=== PATIENT | male | born 1965 | race Caucasian/White ===

== ENCOUNTER 2018-11-13 15:47 | Emergency (ER) | payer OTHER ==
[2018-11-13] MEDS ORDERED: ASPIRIN 81 MG TABLET, CHEWABLE PO ONE (16:28)
[2018-11-13] MEDS ORDERED: LIDOCAINE 1% INJ-PF (10 MG/ML) 30 ML SDV NEB ONE (16:29)
[2018-11-13] MEDS ORDERED: IPRATROPIUM/ALBUTEROL 0.5-2.5 MG/3 ML AMPUL NEB ONE (16:29)
--- NOTE | 2018-11-13 16:30 | ER Document Report ---
ED Medical Screen (RME) - General Chief Complaint: Shortness Of Breath Stated Complaint: COUGH/SHORT OF BREATH Time Seen by Provider: 11/13/18 16:28 Primary Care Provider: LÁZARO OSORIO MD [Primary Care Provider] - Follow up as needed TRAVEL OUTSIDE OF THE [place] IN LAST 30 DAYS: No - HPI Notes: 11/13/18 16:29 Patient coming in for week's worth of shortness of breath feeling unwell fevers chills cough has been productive patient now having 2 days of chest heaviness. Past medical history positive for seizure disorder hypertension tremors on Keppra verapamil and propranolol - Related Data Allergies/Adverse Reactions: bees Allergy (Uncoded 11/13/18 15:50) Review of Systems - Review of Systems Respiratory: Cough Physical Exam - Vital signs Vitals: Temp Pulse Resp BP Pulse Ox 98.0 F 74 18 138/90 H 96 11/13/18 15:50 11/13/18 15:50 11/13/18 15:50 11/13/18 15:50 11/13/18 15:50 - Respiratory Respiratory status: No respiratory distress Chest status: Nontender Breath sounds: Wheezing - fine Course - Vital Signs Vital signs: Temp Pulse Resp BP Pulse Ox 98.0 F 74 18 138/90 H 96 11/13/18 15:50 11/13/18 15:50 11/13/18 15:50 11/13/18 15:50 11/13/18 15:50 Doctor's Discharge - Discharge Referrals: LÁZARO OSORIO MD [Primary Care Provider] - Follow up as needed
[2018-11-13 17:19] LABS: INTERNATIONAL RATION (INR) 1.01; PROTHROMBIN TIME 13.8 SEC (11.4-15.4)
--- NOTE | 2018-11-13 17:24 | ER Document Report ---
ED General - General Chief Complaint: Shortness Of Breath Stated Complaint: COUGH/SHORT OF BREATH Time Seen by Provider: 11/13/18 16:28 Primary Care Provider: LÁZARO OSORIO MD [COMMUNITY BASED STAFF] - Follow up as needed TRAVEL OUTSIDE OF THE [place] IN LAST 30 DAYS: No - HPI Notes: Patient is a 52-year-old male with a history of hypertension, migraines, seizures who presents the emergency department complaining of nasal congestion/discharge, semi-productive cough, subjective fever, and body aching over the last week. Patient states that starting yesterday he started having chest tightness and some wheezing which has been constant. Patient states that walking on occasion will make the tightness and breathing worse. He is otherwise able to eat and drink without difficulty. He is urinating normally and having normal bowel movements. No other concern of pain. No significant cardiopulmonary medical history. Denies drug allergies. No smoking history. Denies any headache, fever, neck pain, sore throat, palpitations, syncope, abdominal pain, nausea/vomiting/diarrhea, urinary retention, dysuria, hematuria, back pain, or rash. - Related Data Allergies/Adverse Reactions: bees Allergy (Uncoded 11/13/18 15:50) Past Medical History - Social History Smoking Status: Former Smoker Chew tobacco use (# tins/day): No Frequency of alcohol use: None Drug Abuse: None Family History: Reviewed & Not Pertinent Patient has suicidal ideation: No Patient has homicidal ideation: No - Past Medical History Cardiac Medical History: Reports: Hx Hypertension Neurological Medical History: Reports: Hx Seizures Renal/ Medical History: Denies: Hx Peritoneal Dialysis Review of Systems - Review of Systems -: Yes All other systems reviewed and negative Physical Exam - Vital signs Vitals: Temp Pulse Resp BP Pulse Ox 98.0 F 74 18 138/90 H 96 11/13/18 15:50 11/13/18 15:50 11/13/18 15:50 11/13/18 15:50 11/13/18 15:50 - Notes Notes: PHYSICAL EXAMINATION: GENERAL: Well-appearing, well-nourished and in no acute distress. A&Ox4. Answers questions appropriately. HEAD: Atraumatic, normocephalic. EYES: Pupils equal round and reactive to light, extraocular movements intact, sclera anicteric, conjunctiva are normal. ENT: Nares patent and with clear discharge. oropharynx clear without exudates. No tonsilar hypertrophy or erythema. Moist mucous membranes. NECK: Normal range of motion, supple without lymphadenopathy LUNGS: scant crackle rt lower lobe. No distress or tachypnea. HEART: Regular rate and rhythm without murmurs, rubs, gallops. ABDOMEN: Soft, nontender, nondistended abdomen. No guarding, no rebound. Normal bowel sounds present. No CVA tenderness bilaterally. Musculoskeletal: FROM to passive/active. Strength 5+/5. Ruby neg. No asymmetry to LE's. Extremities: No cyanosis, clubbing, or edema b/l. Peripheral pulses 2+. Capillary refill less than 3 seconds. NEUROLOGICAL: Normal speech, normal gait. PSYCH: Normal mood, normal affect. SKIN: Warm, Dry, normal turgor, no rashes or lesions noted. Course - Re-evaluation Re-evalutation: 11/13/18 19:24 Patient is an afebrile, well-hydrated 52-year-old male who presents to the ED with RLL pneumonia, suspect CAP. Vitals are acceptable without any significant tachycardia, tachypnea, or hypoxia. PE is otherwise unremarkable. Patient is nontoxic-appearing and is tolerating p.o. without any difficulties. CBC shows mild leukocytosis. CMP, EKG/cardiac enzymes 2 unremarkable for any acute pathology. See CXR result. Patient does not have any chest pain, dyspnea, or shortness of breath at this time. Patient's presentation and symptomatology creates low suspicion for ACS, PE, pneumothorax, pericarditis, dissection, respiratory compromise, severe dehydration, sepsis, meningitis, or other systemic emergent condition at this time. Patient is aware that his condition can change from initial presentation and he needs to monitor symptoms closely and seek medical attention for any acute changes. Rx for levaquin. Recommend conservative measures for symptoms. Recheck with your PCM in 3-5 days. Return to the ED with any worsening/concerning symptoms otherwise as reviewed in discharge. Patient is in agreement. - Vital Signs Vital signs: Temp Pulse Resp BP Pulse Ox 98.4 F 74 18 116/76 98 11/13/18 18:55 11/13/18 15:50 11/13/18 18:54 11/13/18 19:00 11/13/18 18:59 - Laboratory Result Diagrams: 11/13/18 16:42 11/13/18 16:42 Laboratory results interpreted by me: 11/13/18 11/13/18 16:42 16:42 WBC 11.7 H Absolute Neutrophils 8.5 H Direct Bilirubin 0.5 H ALT 17 L Discharge - Discharge Clinical Impression: Right lower lobe pneumonia Qualifiers: Pneumonia type: due to unspecified organism Qualified Code(s): J18.1 - Lobar pneumonia, unspecified organism Condition: Stable Disposition: HOME, SELF-CARE Instructions: Pneumonia ([facility]), Levofloxacin Additional Instructions: Maintain adequate fluid intake Take meds as directed tylenol/ibuprofen as needed over the counter cold medication as needed for symptoms Humidified air may help Wash your hands regularly Wear a mask when coughing F/u: with your PCM in 3-5 days for a recheck Return to the ED with any fever, worsening pain, chest pain, palpitations, syncope, worsening JOLLY, neck pain/stiffness, shortness of breath, wheezing, drooling, trouble swallowing/breathing, abdominal pain, n/v/d, rash, or worsening/concerning symptoms otherwise. Prescriptions: Levofloxacin [Levaquin 750 mg Tablet] 750 mg PO DAILY #5 tablet Referrals: LÁZARO OSORIO MD [COMMUNITY BASED STAFF] - Follow up as needed
[2018-11-13 17:26] LABS: ALANINE AMINOTRANSFERASE 17 U/L (21-72); ALKALINE PHOSPHATASE 92 U/L (38-126); ANION GAP 13 (5-19); ASPARTATE AMINO TRANSFERASE 22 U/L (17-59); BILIRUBIN,DIRECT 0.5 mg/dL (0.0-0.4); BLOOD UREA NITROGEN 16 mg/dL (7-20); CARBON DIOXIDE 25 mmol/L (22-30); CHLORIDE 103 mmol/L (98-107); CREATINE KINASE 99 U/L (55-170); GLUCOSE 88 mg/dL (75-110); POTASSIUM 4.6 mmol/L (3.6-5.0); TOTAL PROTEIN 7.5 g/dL (6.3-8.2)
[2018-11-13 17:32] LABS: ABSOLUTE BASOPHILS # (AUTO) 0.1 10^3/uL (0.0-0.2); ABSOLUTE EOSINOPHILS # (AUTO) 0.2 10^3/uL (0.0-0.6); ABSOLUTE LYMPHOCYTES (AUTO) 1.7 10^3/uL (0.5-4.7); ABSOLUTE MONOCYTES (AUTO) 1.1 10^3/uL (0.1-1.4); ABSOLUTE NEUT (AUTO) 8.5 10^3/uL (1.7-8.2); BASOPHILS % (AUTO) 0.6 % (0-2); HEMATOCRIT 42.5 % (37.9-51.0); HEMOGLOBIN 14.7 g/dL (13.5-17.0); LYMPHOCYTES % (AUTO) 14.8 % (13-45); MEAN CORPUSCULAR HEMOGLOBIN 31.4 pg (27.0-33.4); MEAN CORPUSCULAR HGB CONC 34.5 g/dL (32.0-36.0); MEAN CORPUSCULAR VOLUME 91 fl (80-97); MONOCYTES % (AUTO) 9.8 % (3-13); PLATELET COUNT 410 10^3/uL (150-450); RED BLOOD COUNT 4.67 10^6/uL (4.35-5.55); RED CELL DISTRIBUTION WIDTH 12.5 % (11.5-14.0); SEGMENTED NEUTROPHILS % (AUTO) 72.8 % (42-78); TOTAL CELLS COUNTED % (AUTO) 100 %; WHITE BLOOD COUNT 11.7 10^3/uL (4.0-10.5)
[2018-11-13 17:38] LABS: A TYPE INFLUENZA AG NEGATIVE (NEGATIVE)
[2018-11-13 17:39] LABS: B INFLUENZA AG NEGATIVE (NEGATIVE); CREATINE KINASE MB < 0.22 ng/mL (<4.55); TROPONIN I < 0.012 ng/mL
--- NOTE | 2018-11-13 18:32 | RADIOLOGY REPORT (SQ) ---
EXAM DESCRIPTION: CHEST 2 VIEWS COMPLETED DATE/TIME: 11/13/2018 6:17 pm REASON FOR STUDY: sob COMPARISON: None. EXAM PARAMETERS: NUMBER OF VIEWS: two views TECHNIQUE: Digital Frontal and Lateral radiographic views of the chest acquired. RADIATION DOSE: NA LIMITATIONS: none FINDINGS: LUNGS AND PLEURA: Parenchymal opacity at the right lung base best seen on the lateral film . Left lung is clear. MEDIASTINUM AND HILAR STRUCTURES: No masses or contour abnormalities. HEART AND VASCULAR STRUCTURES: Heart normal size. No evidence for failure. BONES: No acute findings. HARDWARE: None in the chest. OTHER: No other significant finding. IMPRESSION: Right lower lobe pneumonia. TECHNICAL DOCUMENTATION: JOB ID: [id number] [employer]- All Rights Reserved Reading location - IP/workstation name: [email or web address]
[2018-11-13 19:13] VITALS: BP 116/76
--- NOTE | 2018-11-13 23:49 | EKG REPORT ---
SEVERITY:- ABNORMAL ECG - SINUS RHYTHM NONSPECIFIC T ABNORMALITIES, INFERIOR LEADS : Confirmed by: Dave Lomeli 13-Nov-2018 23:48:44
== END 2018-11-13 19:34 | disposition home or self-care (01) ==
LOC: ER 15:47
DX: J18.1 Lobar pneumonia, unspecified organism (principal); R06.02 Shortness of breath; R05 Cough; R09.81 Nasal congestion; R09.89 Other specified symptoms and signs involving the circulatory and respiratory systems; R50.9 Fever, unspecified; M79.10 Myalgia, unspecified site; Z87.891 Personal history of nicotine dependence; I10 Essential (primary) hypertension
CPT/HCPCS: 93005; 94640 ×2; 99285; 36415; 82553; 82550; 85025; 85610; 80053; 84484; 87804; 71046; 93010; J3490; J7620

== ENCOUNTER 2018-11-15 21:14 | Emergency (ER) | payer OTHER ==
[2018-11-15] MEDS ORDERED: IPRATROPIUM/ALBUTEROL 0.5-2.5 MG/3 ML AMPUL NEB ONE ×2 (22:15→23:00)
[2018-11-15] MEDS ORDERED: METHYLPREDNISOLONE INJ 125 MG/2 ML SDV IV ONE (22:15)
[2018-11-15 22:47] LABS: ABSOLUTE BASOPHILS # (AUTO) 0.1 10^3/uL (0.0-0.2); ABSOLUTE EOSINOPHILS # (AUTO) 0.3 10^3/uL (0.0-0.6); ABSOLUTE LYMPHOCYTES (AUTO) 1.8 10^3/uL (0.5-4.7); ABSOLUTE NEUT (AUTO) 8.1 10^3/uL (1.7-8.2); EOSINOPHILS % (AUTO) 2.6 % (0-6); HEMATOCRIT 39.6 % (37.9-51.0); HEMOGLOBIN 13.6 g/dL (13.5-17.0); LYMPHOCYTES % (AUTO) 15.6 % (13-45); MEAN CORPUSCULAR HEMOGLOBIN 31.1 pg (27.0-33.4); MEAN CORPUSCULAR HGB CONC 34.5 g/dL (32.0-36.0); MEAN CORPUSCULAR VOLUME 90 fl (80-97); MONOCYTES % (AUTO) 8.7 % (3-13); PLATELET COUNT 428 10^3/uL (150-450); RED BLOOD COUNT 4.39 10^6/uL (4.35-5.55); RED CELL DISTRIBUTION WIDTH 12.2 % (11.5-14.0); SEGMENTED NEUTROPHILS % (AUTO) 72.1 % (42-78); TOTAL CELLS COUNTED % (AUTO) 100 %; WHITE BLOOD COUNT 11.2 10^3/uL (4.0-10.5)
--- NOTE | 2018-11-15 23:03 | ER Document Report ---
ED General - General Chief Complaint: Breathing Difficulty Stated Complaint: TROUBLE BREATHING Time Seen by Provider: 11/15/18 21:59 Notes: Patient is a 52-year-old male presents with complaint of difficulty breathing. He was seen here 2 days ago and diagnosed with a right lower lobe pneumonia and placed on Levaquin. Says he is now had worsening difficulty breathing and feels very short of breath and winded when he gets up and walks around. He denies history of smoking. No fevers. No vomiting. No abdominal pain. No other complaints at this time. No history of asthma. No history of smoking. - Related Data Allergies/Adverse Reactions: bees Allergy (Uncoded 11/15/18 22:41) Past Medical History - Social History Smoking Status: Never Smoker Chew tobacco use (# tins/day): Yes Frequency of alcohol use: None Drug Abuse: None Family History: Reviewed & Not Pertinent Patient has suicidal ideation: No Patient has homicidal ideation: No - Past Medical History Cardiac Medical History: Reports: Hx Hypertension Denies: Hx Heart Attack Neurological Medical History: Reports: Hx Seizures Renal/ Medical History: Denies: Hx Peritoneal Dialysis Review of Systems - Review of Systems Notes: My Normal Review Basic REVIEW OF SYSTEMS: CONSTITUTIONAL : Pneumonia diagnosis EENT: Denies eye, ear, throat, or mouth pain or symptoms. Denies nasal or sinus congestion. CARDIOVASCULAR: Denies chest pain. RESPIRATORY: Difficulty breathing GASTROINTESTINAL: Denies abdominal pain. Denies nausea, vomiting, or diarrhea. MUSCULOSKELETAL: Denies neck or back pain or joint pain or swelling. SKIN: Denies rash or skin lesions. NEUROLOGICAL: Denies altered mental status or loss of consciousness. Denies headache. Denies weakness or paralysis or loss of use of either side. Denies problems with gait or speech. Denies sensory or motor loss. ALL OTHER SYSTEMS REVIEWED AND NEGATIVE. Physical Exam - Vital signs Vitals: Temp Pulse Resp BP Pulse Ox 97.8 F 84 16 146/81 H 98 11/15/18 21:20 11/15/18 21:20 11/15/18 21:20 11/15/18 21:20 11/15/18 21:20 - Notes Notes: General Appearance: Well nourished, alert, cooperative, mild acute distress, no obvious discomfort. Vitals: reviewed, See vital signs table. Head: no swelling or tenderness to the head Eyes: PERRL, EOMI, Conjuctiva clear Mouth: No decreasd moisture Throat: No tonsillar inflammation, No airway obstruction, No lymphadenopathy Neck: Supple, no neck tenderness, No thyromegaly Lungs: No wheezing, No rales, diffuse rhonchorous breath sounds, No accessory muscle use, fair air exchange bilaterally. Heart: Normal rate, Regular rythm, No murmur, no rub Abdomen: Normal BS, soft, No rigidity, No abdominal tenderness, No guarding, no rebound, no abdominal masses, no organomegaly Extremities: good pulses in all extremities, no edema Skin: warm, dry, appropriate color, no rash Neuro: speech clear, oriented x 3, normal affect, responds appropriately to questions. Course - Re-evaluation Re-evalutation: 11/16/18 00:25 On reevaluation patient continues to to have coarse breath sounds with some restricted air movement. I will give him 2 g of mag as well as another breathing treatment. I will then reassess. 11/16/18 02:07 Patient has received magnesium. Breathing treatment patient has received magnesium and repeat breathing treatment. He started to feel much better. Lung auscultation is improved. We will watch him for another 30 minutes to an hour to make sure that he does not have rebound difficulty breathing or tightness. Patient agrees with plan. 11/16/18 03:17 Patient ambulated and kept his SPO2 to 96-97%. He said he did not short of breath and says he would like to go home. I informed him to start a low threshold to return to ER if he has worsening difficulty breathing, fevers, or feels unwell. I will send him home with albuterol inhaler. We will continue him on prednisone. Patient agrees with plan and will be discharged home. Dictation of this chart was performed using voice recognition software; therefore, there may be some unintended grammatical errors. 11/16/18 03:18 - Vital Signs Vital signs: Temp Pulse Resp BP Pulse Ox 97.8 F 82 17 122/92 H 96 11/15/18 21:20 11/15/18 21:21 11/16/18 03:01 11/16/18 03:01 11/16/18 03:01 - Laboratory Result Diagrams: 11/15/18 22:27 11/15/18 22:27 Laboratory results interpreted by me: 11/15/18 22:27 WBC 11.2 H Discharge - Discharge Clinical Impression: Bronchitis Condition: Good Disposition: HOME, SELF-CARE Additional Instructions: You had a lot of wheezing when he first arrived. This did improve with breathing treatments. We will give you an inhaler to use. Please use inhaler as 2 puffs every 2-4 hours as needed for difficulty breathing or wheezing. Please take the prednisone as prescribed. Please have a low threshold to return to the ER if you have recurrent wheezing or difficulty breathing despite using inhaler, fevers, or feel that you are worsening in any way. Please follow-up with your doctor in 2 days for reevaluation. Continue take the antibiotic that was prescribed. Prescriptions: Prednisone [Deltasone 20 mg Tablet] 3 tab PO DAILY 4 Days tablet Forms: Return to Work
[2018-11-15 23:04] LABS: ANION GAP 9 (5-19); BLOOD UREA NITROGEN 20 mg/dL (7-20); CALCIUM 9.8 mg/dL (8.4-10.2); CARBON DIOXIDE 25 mmol/L (22-30); CHLORIDE 105 mmol/L (98-107); GLUCOSE 90 mg/dL (75-110); POTASSIUM 4.3 mmol/L (3.6-5.0); SODIUM 138.9 mmol/L (137-145)
--- NOTE | 2018-11-15 23:33 | RADIOLOGY REPORT (SQ) ---
EXAM DESCRIPTION: XR CHEST 2 VIEWS COMPLETED DATE/TME: 11/15/2018 22:16 CLINICAL HISTORY: 52 years Male, pneumonia COMPARISON: Two days prior. NUMBER OF VIEWS/TECHNIQUE: 2, Frontal, Lateral FINDINGS: Adequate lung volume, small patchiness of the medial right lower lobe, normal cardiac silhouette, and intact bony thorax. IMPRESSION: Right lower lobar pneumonia. Some possible interval improvement. Recommend CR/CT surveillance including at 7-12 weeks following initiation of any clinically warranted therapy.
[2018-11-16] MEDS ORDERED: ALBUTEROL SULFATE 0.083% NEB 2.5 MG/3 ML AMPUL NEB ONE (00:25)
[2018-11-16] MEDS: MAGNESIUM SULFATE/D5W 1 GM/100 ML RTUPB IV SCH ×2 (00:56→02:08)
[2018-11-16 03:04] VITALS: BP 122/92
[2018-11-16] MEDS ORDERED: ALBUTEROL SULFATE HFA (90 MCG/PUFF) 8 GM MDI (1 MDI/ER DISP) IH ONE (03:11)
== END 2018-11-16 03:33 | disposition home or self-care (01) ==
LOC: ER 21:14
DX: J40 Bronchitis, not specified as acute or chronic (principal); I10 Essential (primary) hypertension
CPT/HCPCS: 94640 ×2; 96365; 99285; 96375; 96366; 36415; 85025; 80048; 71046; J2930; J3475; J3490; J7620